=== PATIENT | male | born 1965 | race Caucasian/White ===

== ENCOUNTER 2016-07-11 07:54 | Day surgery (SDC) | payer OTHER ==
[~2016-07-11 07:54] MED LIST: FENTANYL 250 MCG/5 ML AMP IV PRN; LACTATED RINGERS 1,000 ML IV SCH; MIDAZOLAM HCL 5 MG/5 ML VIAL IV PRN
[2016-07-11] MEDS ORDERED: LACTATED RINGERS 1,000 ML ONE ×2 (08:00→09:56)
[2016-07-11] MEDS ORDERED: IV START KIT ONE (08:00)
[2016-07-11] MEDS ORDERED: MIDAZOLAM HCL 5 MG/5 ML VIAL ONE (09:51)
[2016-07-11] MEDS ORDERED: FENTANYL 250 MCG/5 ML AMP ONE (09:52)
== END 2016-07-11 11:02 | disposition home or self-care (01) ==
LOC: SDC 07:54
PROVIDERS: ATTEND Internal Medicine Gastroenterology
PROC: 0DJD8ZZ Inspection of Lower Intestinal Tract, Via Natural or Artificial Opening Endoscopic (ICD-10-PCS; principal; 2016-07-11)
DX: Z12.11 Encounter for screening for malignant neoplasm of colon (principal); I10 Essential (primary) hypertension; R12 Heartburn
CPT/HCPCS: 45378; J3010; J2250; J7120 ×2